=== PATIENT | male | born 1995 | race Two or more races ===

== ENCOUNTER 2025-03-30 17:59 | Emergency (ER) | payer OTHER ==
[~2025-03-30] VITALS: Ht 180.3 cm; Wt 79.4 kg
[2025-03-30] MEDS ORDERED: COZAAR50 MG PO (18:08)
[2025-03-30] MEDS ORDERED: KETOROLAC TROMETHAMINE 30 MG VIAL IM STA (18:23)
[2025-03-30] MEDS ORDERED: AZITHROMYCIN 500 MG TABLET PO STA (18:25)
[2025-03-30] MEDS ORDERED: GUAIFENESIN 100 MG/5 ML BLIST.PACK PO STA (18:25)
[2025-03-30] MEDS ORDERED: KETOROLAC TROMETHAMINE 30 MG VIAL ONE (19:33)
[2025-03-30] MEDS ORDERED: AZITHROMYCIN 500 MG TABLET PO ONE (19:33)
[2025-03-30] MEDS ORDERED: GUAIFENESIN 200 MG/10 ML BLIST.PACK PO ONE (19:33)
[2025-03-30 20:01] LABS: BASO % 0.5 % (0.1-1.2); EOS # 0.22 (0.04-0.54); EOS % 2.7 % (0.7-7.0); LYMPH # 2.21 (1.18-3.74); LYMPH % 26.7 % (19.3-53.1); MEAN PLATELET VOLUME 9.60 fl (9.4-12.4); MONO # 0.70 (0.24-0.82); MONO % 8.4 % (4.7-12.5); NEUT # 5.10 (1.56-6.13); NEUT % 61.5 % (34.0-71.1); RED CELL DISTRIBUTION WIDTH 11.9 % (11.6-14.4)
[2025-03-30 20:30] LABS: COVID-19 AG NEGATIVE (NEGATIVE)
== END 2025-03-30 20:55 | disposition home or self-care (01) ==
LOC: ER 17:59
PROVIDERS: General Practice
DX: R50.9 Fever, unspecified (principal); Z20.822 Contact with and (suspected) exposure to COVID-19; Z88.0 Allergy status to penicillin; Z91.013 Allergy to seafood